=== PATIENT | male | born 1990 | race Caucasian/White ===

== ENCOUNTER 2025-04-12 14:27 | Emergency (ER) | payer SELFPAY ==
[~2025-04-12] VITALS: Ht 165.1 cm; Wt 65.9 kg
[2025-04-12 14:38] VITALS: BP 129/70; PULSE 70; RESP 18; TEMP 98.1; O2SAT 99
[2025-04-12] MEDS: IBUPROFEN 600 MG TABLET PO ONE (15:11)
[2025-04-12] MEDS ORDERED: IBUP-1554 PO (15:12)
[2025-04-12] MEDS: PERTUSS(ACELL),DIPH,TET/PF 0.5 ML SYRINGE [ADULT] IM. ONE (15:12)
[2025-04-12] MEDS ORDERED: ACET-66 PO (15:12)
== END 2025-04-12 15:39 | disposition home or self-care (01) ==
LOC: EMS 14:27
DX: T63.301A Toxic effect of unspecified spider venom, accidental (unintentional), initial encounter (principal); F17.210 Nicotine dependence, cigarettes, uncomplicated; Z79.899 Other long term (current) drug therapy; Y92.89 Other specified places as the place of occurrence of the external cause
CPT/HCPCS: 90471; 90715; 99283